=== PATIENT | male | born 1970 | race Caucasian/White ===

== ENCOUNTER 2018-08-19 12:00 | Emergency (ER) | payer OTHER ==
[~2018-08-19] VITALS: Ht 170.2 cm; Wt 103.5 kg
[2018-08-19] MEDS ORDERED: LISI2.5T PO (12:14)
[2018-08-19] MEDS ORDERED: ATOR10TA PO (12:15)
[2018-08-19] MEDS ORDERED: IOHEXOL 300 MG/ML 75 ML VIAL. IV ONE (13:00)
[2018-08-19 13:19] LABS: BASO # 0.1 x10^3/uL (0.0-0.2); BASO % 1 % (0-3); EOS # 0.2 x10^3/uL (0.0-0.7); EOS % 3 % (0-3); HEMATOCRIT 49.9 % (39.0-53.0); LYMPH % 22 % (24-48); MEAN CORPUSCULAR HEMOGLOBIN 32 pg (25-35); MEAN CORPUSCULAR HGB CONC 34 g/dL (31-37); MEAN CORPUSCULAR VOLUME 94 fL (79-100); MONO # 0.9 x10^3/uL (0.0-1.1); MONO % 10 % (0-9); NEUT # 5.8 x10^3uL (1.8-7.7); NEUT % 64 % (31-73); PLATELET COUNT 333 x10^3/uL (140-400); RED CELL DISTRIBUTION WIDTH 13.3 % (11.5-14.5); WHITE BLOOD COUNT 9.1 x10^3/uL (4.0-11.0)
[2018-08-19 13:31] LABS: ALBUMIN/GLOBULIN RATIO 1.1 (1.0-1.7); CALCIUM 8.9 mg/dL (8.5-10.1); CREATININE 0.9 mg/dL (0.7-1.3); GFR 89.3; POTASSIUM 3.9 mmol/L (3.5-5.1); TOTAL BILIRUBIN 0.5 mg/dL (0.2-1.0); TOTAL PROTEIN 7.8 g/dL (6.4-8.2)
--- NOTE | 2018-08-19 13:37 | RAD ---
CT abdomen and pelvis with contrast History: Right lower quadrant pain for 2 days Technique: After the administration of intravenous contrast, CT imaging was performed of the abdomen and pelvis. No oral contrast was given as per request. Multiplanar images are reviewed. Exposure: One or more of the following individualized dose reduction techniques were utilized for this examination: 1. Automated exposure control 2. Adjustment of the mA and/or kV according to patient size 3. Use of iterative reconstruction technique. Comparison: None Findings: There is no significant abnormality of the visualized lung bases. There is no significant abnormality of the liver, pancreas, adrenal glands. Spleen is absent, small focus of density left upper quadrant probably due to accessory spleen or splenic remnant. Both kidneys enhance without hydronephrosis. There is a 1.4 cm superior left renal cyst, another tiny hypodense dense focus left kidney too small to characterize. There are a few small bilateral renal calculi, largest inferiorly of the right about 0.2-0.3 cm. Gallbladder is present without obvious intraluminal abnormality by CT. Accurate evaluation of bowel is limited without oral contrast. There is no significant inflammatory change adjacent to the bowel. There is no evidence of bowel obstruction, free fluid, or free air. Normal appendix is visualized. There is wall thickening of the descending and transverse duodenum and proximal jejunum. There is fat in the left inguinal canal, no bowel. Impression: 1. There is no CT evidence of acute appendicitis. There is wall thickening of the transverse and descending duodenum and proximal jejunum, evidence of enteritis. 2. There are small bilateral renal calculi. Electronically signed by: Jose David Hemphill MD (08/19/2018 1:33 PM) [id number]
[2018-08-19] MEDS ORDERED: METR500T PO (14:04)
[2018-08-19] MEDS ORDERED: CIPR500T94 PO (14:04)
[2018-08-19] MEDS ORDERED: TRAM50TA PO (14:04)
--- NOTE | 2018-08-19 14:04 | PHYS DOC ---
Past History Past Medical History: High Cholesterol, Hypertension, Other Past Surgical History: Spleenectomy, Other Alcohol Use: Occasionally Drug Use: None Adult General Chief Complaint Chief Complaint: ABDOMINAL PAIN HPI HPI Patient is a 48-year-old male who presents with complaint of right lower quadrant abdominal pain that started 2 days ago. Patient indicates that pain has been mild to moderate the entire time. Currently he rates his pain to be a 3 out of 10. He indicates the pain is worsened with palpation and he reports that he has rebound tenderness. He denies any nausea or vomiting and states that he has had a fairly normal appetite. Patient is concerned about the possibility of appendicitis. He denies any fever, chest pain or shortness of breath. Review of Systems Review of Systems Constitutional: Denies fever or chills [] Respiratory: Denies cough or shortness of breath [] Cardiovascular: No additional information not addressed in HPI [] GI: Complains of abdominal pain without vomiting or diarrhea [] : Denies dysuria or hematuria [] Musculoskeletal: Denies back pain or joint pain [] Integument: Denies rash or skin lesions [] All other systems were reviewed and found to be within normal limits, except as documented in this note. Current Medications Current Medications Current Medications Medications (Trade) Dose Ordered Sig/Elsie Start Time Stop Time Status Last Admin Dose Admin Iohexol (Omnipaque 300 Mg/ml) 75 ml 1X ONCE 08/19/18 13:00 08/19/18 13:02 DC 08/19/18 13:15 75 ML Allergies Allergies Allergies Coded Allergies Type Severity Reaction Last Updated Verified No Known Drug Allergies 08/19/18 No Physical Exam Physical Exam Constitutional: Well developed, well nourished, no acute distress, non-toxic appearance. [] HENT: Normocephalic, atraumatic, bilateral external ears normal, oropharynx moist, no oral exudates, nose normal. [] Eyes: PERRLA, EOMI, conjunctiva normal, no discharge. [] Neck: Normal range of motion, no tenderness, supple, no stridor. [] Cardiovascular: Regular rate and rhythm. [] Lungs & Thorax: Bilateral breath sounds clear to auscultation [] Abdomen: Bowel sounds normal, soft, with right lower quadrant tenderness to palpation. [] Skin: Warm, dry, no erythema, no rash. [] Extremities: No tenderness, no cyanosis, no clubbing, ROM intact, no edema. [] Neurologic: Alert and oriented X 3, normal motor function, normal sensory function, no focal deficits noted. [] Current Patient Data Vital Signs Vital Signs Date Time Temp Pulse Resp B/P (MAP) Pulse Ox O2 Delivery O2 Flow Rate FiO2 08/19/18 12:05 98.3 74 18 96 Room Air Lab Results Laboratory Tests Test 08/19/18 13:04 White Blood Count 9.1 x10^3/uL (4.0-11.0) Red Blood Count 5.30 x10^6/uL (4.30-5.70) Hemoglobin 17.0 g/dL (13.0-17.5) Hematocrit 49.9 % (39.0-53.0) Mean Corpuscular Volume 94 fL (79-100) Mean Corpuscular Hemoglobin 32 pg (25-35) Mean Corpuscular Hemoglobin Concent 34 g/dL (31-37) Red Cell Distribution Width 13.3 % (11.5-14.5) Platelet Count 333 x10^3/uL (140-400) Neutrophils (%) (Auto) 64 % (31-73) Lymphocytes (%) (Auto) 22 % (24-48) L Monocytes (%) (Auto) 10 % (0-9) H Eosinophils (%) (Auto) 3 % (0-3) Basophils (%) (Auto) 1 % (0-3) Neutrophils # (Auto) 5.8 x10^3uL (1.8-7.7) Lymphocytes # (Auto) 2.0 x10^3/uL (1.0-4.8) Monocytes # (Auto) 0.9 x10^3/uL (0.0-1.1) Eosinophils # (Auto) 0.2 x10^3/uL (0.0-0.7) Basophils # (Auto) 0.1 x10^3/uL (0.0-0.2) Sodium Level 139 mmol/L (136-145) Potassium Level 3.9 mmol/L (3.5-5.1) Chloride Level 100 mmol/L (98-107) Carbon Dioxide Level 28 mmol/L (21-32) Anion Gap 11 (6-14) Blood Urea Nitrogen 18 mg/dL (8-26) Creatinine 0.9 mg/dL (0.7-1.3) Estimated GFR (Cockcroft-Gault) 89.3 BUN/Creatinine Ratio 20 (6-20) Glucose Level 94 mg/dL (70-99) Calcium Level 8.9 mg/dL (8.5-10.1) Total Bilirubin 0.5 mg/dL (0.2-1.0) Aspartate Amino Transferase (AST) 27 U/L (15-37) Alanine Aminotransferase (ALT) 42 U/L (16-63) Alkaline Phosphatase 58 U/L (46-116) Total Protein 7.8 g/dL (6.4-8.2) Albumin 4.0 g/dL (3.4-5.0) Albumin/Globulin Ratio 1.1 (1.0-1.7) EKG EKG [] Radiology/Procedures Radiology/Procedures [] Impressions: PROCEDURE: CT ABD PELV W/ IV CONTRST ONLY CT abdomen and pelvis with contrast History: Right lower quadrant pain for 2 days Technique: After the administration of intravenous contrast, CT imaging was performed of the abdomen and pelvis. No oral contrast was given as per request. Multiplanar images are reviewed. Exposure: One or more of the following individualized dose reduction techniques were utilized for this examination: 1. Automated exposure control 2. Adjustment of the mA and/or kV according to patient size 3. Use of iterative reconstruction technique. Comparison: None Findings: There is no significant abnormality of the visualized lung bases. There is no significant abnormality of the liver, pancreas, adrenal glands. Spleen is absent, small focus of density left upper quadrant probably due to accessory spleen or splenic remnant. Both kidneys enhance without hydronephrosis. There is a 1.4 cm superior left renal cyst, another tiny hypodense dense focus left kidney too small to characterize. There are a few small bilateral renal calculi, largest inferiorly of the right about 0.2-0.3 cm. Gallbladder is present without obvious intraluminal abnormality by CT. Accurate evaluation of bowel is limited without oral contrast. There is no significant inflammatory change adjacent to the bowel. There is no evidence of bowel obstruction, free fluid, or free air. Normal appendix is visualized. There is wall thickening of the descending and transverse duodenum and proximal jejunum. There is fat in the left inguinal canal, no bowel. Impression: 1. There is no CT evidence of acute appendicitis. There is wall thickening of the transverse and descending duodenum and proximal jejunum, evidence of enteritis. 2. There are small bilateral renal calculi. Electronically signed by: Jose David Hemphill MD (08/19/2018 1:33 PM) Course & Med Decision Making Course & Med Decision Making Pertinent Labs and Imaging studies reviewed. (See chart for details) [] Dragon Disclaimer Dragon Disclaimer This electronic medical record was generated, in whole or in part, using a voice recognition dictation system. Departure Departure: Impression: Primary Impression: Enteritis Disposition: HOME, SELF-CARE Condition: STABLE Referrals: HEMANT LANCASTER DO (PCP) Patient Instructions: Viral Gastroenteritis Scripts Tramadol Hcl (TRAMADOL HCL) 50 Mg Tablet 50 MG PO PRN Q6HRS PRN for PAIN, #20 TAB Prov: CARSON IBRAHIM Jr. DO 08/19/18 Metronidazole (FLAGYL) 500 Mg Tablet 1 TAB PO TID for infection, #30 TAB Prov: CARSON IBRAHIM Jr. DO 08/19/18 Ciprofloxacin Hcl (CIPRO) 500 Mg Tablet 1 TAB PO BID for infection, #20 TAB Prov: CARSON IBRAHIM Jr. DO 08/19/18 CARSON IBRAHIM Jr. DO Aug 19, 2018 14:04
[2018-08-19 14:15] VITALS: BP 138/102
== END 2018-08-19 14:17 | disposition home or self-care (01) ==
LOC: ER 12:00
DX: K52.9 Noninfective gastroenteritis and colitis, unspecified (principal); N20.0 Calculus of kidney; E78.00 Pure hypercholesterolemia, unspecified; I10 Essential (primary) hypertension; Z90.81 Acquired absence of spleen
CPT/HCPCS: 36415; 74177; 80053; 85025; 99284; Q9967

== ENCOUNTER → 2018-12-15 | Day surgery (SDC) | payer OTHER ==
[~2018-12-15] MED LIST: ALBUTEROL SULFATE 2.5 MG/3 ML NEBU. NEB PRN; ATOR10TA PO; ATROPINE 0.5 MG/5 ML DISP.SYRIN. IV PRN; CIPR500T94 PO; IV RINGERS SOLUTION,LACTATED 1,000 ML IV SCH; LIDOCAINE 2% PF Vial for OR 5 ML VIAL. ONE; LISI2.5T PO; METR500T PO; NALOXONE 0.4 MG/ML VIAL. IV PRN; ONDANSETRON PF 4 MG/2 ML VIAL. IV PRN; PROPOFOL 40 ML IV ONE; TRAM50TA PO; diphenhydrAMINE 50 MG/ML VIAL IV PRN
[2018-12-15 10:44] VITALS: BP 136/84
--- NOTE | 2018-12-16 14:11 | PATHOLOGY ---
[facility] Accession Number: [id number] . 01 Material submitted: . POLYP AT 30CM . 01 Clinical history: . Screening . 02 Diagnosis: Colon biopsy, polyp at 30 cm: - Tubular adenoma. (JPM:mary grace; 12/16/2018) QMS/12/16/2018 . 02 Comment: There is no high-grade dysplasia or evidence of malignancy. . 02 Electronically signed: . Jose Gilbert MD, Pathologist NPI- [id number] . 01 Gross description: . Received in formalin labeled "Chris Ellington, polyp at 30 cm," is a single segment of pa soft tissue measuring 0.6 cm in maximum dimension. The specimen is entirely submitted in cassette A1. (TSD; 12/15/2018) TOB/TOB . 02 Pathologist provided ICD-10: D12.6 . 02 CPT . 890138 Specimen Comment: A courtesy copy of this report has been sent to Specimen Comment: [phone], . Specimen Comment: Report sent to / DR MCINTYRE Specimen Comment: A duplicate report has been generated due to demographic updates. Performed at: 01 [facility] [address], [place] [id number] MD Giovanny Cisneros MD Phone: [phone] Performed at: 02 [facility] [address], [place] [id number] MD Jose Gilbert MD Phone: [phone]
== END | disposition home or self-care (01) ==
LOC: SURG 08:59
PROVIDERS: ATTEND Surgery
DX: Z12.11 Encounter for screening for malignant neoplasm of colon (principal); D12.8 Benign neoplasm of rectum; I10 Essential (primary) hypertension; Z79.899 Other long term (current) drug therapy; Z87.442 Personal history of urinary calculi; Z90.81 Acquired absence of spleen; Z72.89 Other problems related to lifestyle
CPT/HCPCS: 45380; 88305; J2704; J7120; J2001

== ENCOUNTER 2021-04-16 08:46 | Emergency (ER) | payer OTHER ==
[~2021-04-16] VITALS: Ht 170.2 cm; Wt 102.0 kg
[~2021-04-16 08:46] MED LIST changes: -ALBUTEROL SULFATE 2.5 MG/3 ML NEBU. NEB PRN; -ATROPINE 0.5 MG/5 ML DISP.SYRIN. IV PRN; -IV RINGERS SOLUTION,LACTATED 1,000 ML IV SCH; -LIDOCAINE 2% PF Vial for OR 5 ML VIAL. ONE; -NALOXONE 0.4 MG/ML VIAL. IV PRN; -ONDANSETRON PF 4 MG/2 ML VIAL. IV PRN; -PROPOFOL 40 ML IV ONE; -diphenhydrAMINE 50 MG/ML VIAL IV PRN
[2021-04-16 08:58] VITALS: BP 137/95
[2021-04-16] MEDS ORDERED: CEPH500T PO (09:32)
--- NOTE | 2021-04-16 09:32 | PHYS DOC ---
Past History Past Medical History: High Cholesterol, Hypertension, Other Past Surgical History: Spleenectomy, Other Additional Past Surgical Histo: rhinoplasty, bilat feet sx, splenectomy Alcohol Use: Occasionally Drug Use: None General Adult EDM: Chief Complaint: FACE PAIN HPI: HPI: 50-year-old male presents with pain just below the left ear. He states that the pain started a couple days ago. It is a firm pressure most of the time but will have peaks of sharp pain. He denies change in hearing. He denies any dental pain. He has a lot of nasal drainage at baseline due to seasonal allergies. He denies fever or chills. He denies any trauma to the area. He does not believe he has had this before. Review of Systems: Review of Systems: Constitutional: Denies fever or chills Eyes: Denies change in visual acuity HENT: Pain below left mastoid Respiratory: Denies cough or shortness of breath Cardiovascular: Denies chest pain or edema GI: Denies abdominal pain, nausea, vomiting, bloody stools or diarrhea : Denies dysuria Musculoskeletal: Denies back pain or joint pain Integument: Denies rash Neurologic: Denies headache, focal weakness or sensory changes Endocrine: Denies polyuria or polydipsia Lymphatic: Denies swollen glands Psychiatric: Denies depression or anxiety Allergies: Allergies: Allergies Coded Allergies Type Severity Reaction Last Updated Verified No Known Drug Allergies 08/19/18 No Physical Exam: PE: Constitutional: Well developed, well nourished, no acute distress, non-toxic appearance. [] HENT: Normocephalic, atraumatic, bilateral external ears normal, oropharynx moist, no oral exudates, nose normal. [] Eyes: PERRLA, EOMI, conjunctiva normal, no discharge. [] Neck: Mild inflammation of cervical lymph nodes just below the left ear, mildly erythematous skin in the area [] Cardiovascular: Heart rate regular rhythm, no murmur [] Lungs & Thorax: Bilateral breath sounds clear to auscultation [] Abdomen: Bowel sounds normal, soft, no tenderness, no masses, no pulsatile masses. [] Skin: Warm, dry, no erythema, no rash. [] Back: No tenderness, no CVA tenderness. [] Extremities: No tenderness, no cyanosis, no clubbing, ROM intact, no edema. [] Neurologic: Alert and oriented X 3, normal motor function, normal sensory function, no focal deficits noted. [] Psychologic: Affect normal, judgement normal, mood normal. [] Current Patient Data: Vital Signs: Vital Signs Date Time Temp Pulse Resp B/P (MAP) Pulse Ox O2 Delivery O2 Flow Rate FiO2 04/16/21 08:58 98.4 71 18 137/95 96 Room Air EKG: EKG: [] Radiology/Procedures: Radiology/Procedures: [] Heart Score: C/O Chest Pain: N/A Risk Factors: Risk Factors: DM, Current or recent (<one month) smoker, HTN, HLP, family history of CAD, obesity. Risk Scores: Score 0 - 3: 2.5% MACE over next 6 weeks - Discharge Home Score 4 - 6: 20.3% MACE over next 6 weeks - Admit for Clinical Observation Score 7 - 10: 72.7% MACE over next 6 weeks - Early Invasive Strategies Course & Med Decision Making: Course & Med Decision Making Pertinent Labs and Imaging studies reviewed. (See chart for details) Based on my exam I do not see an infectious process. His lymph nodes are mildly enlarged and the skin may be more erythematous than the other side. I will go and treat him with Keflex for 7 days. If his condition does not improve in the next 48 hours, he should consider further consultation with ENT. He is stable for discharge at this time. [] Nayana Disclaimer: Nayana Disclaimer: This electronic medical record was generated, in whole or in part, using a voice recognition dictation system. Departure Departure: Impression: Primary Impression: Cellulitis, face Disposition: HOME / SELF CARE / HOMELESS Condition: STABLE Referrals: NATHANIEL TORRES DO (PCP) Patient Instructions: Cellulitis, Ilal-xh-Dxrb Scripts Cephalexin (CEPHALEXIN) 500 Mg Tablet 1 TAB PO TID for cellulitis for 7 Days, #21 TAB Prov: ELODIA GOMEZ DO 04/16/21 ELODIA GOMEZ DO Apr 16, 2021 09:32
== END 2021-04-16 09:54 | disposition home or self-care (01) ==
LOC: ER 08:46
DX: L03.211 Cellulitis of face (principal); E78.00 Pure hypercholesterolemia, unspecified; I10 Essential (primary) hypertension
CPT/HCPCS: 99283